=== PATIENT | female | born 1980 | race Caucasian/White ===

== ENCOUNTER 2016-09-23 12:05 | Outpatient (CLI) ==
[2016-07-09 21:14] VITALS: BMI 37.2
--- NOTE | 2016-09-23 13:09 | US ---
EXAM: Transvaginal pelvic ultrasound HISTORY: Irregular menses COMPARISON: CT abdomen pelvis 06/30/2015 TECHNIQUE: Transvaginal pelvic ultrasound was performed to better evaluate the structures. Limited Doppler was provided. FINDINGS: The uterus measures 10.2 x 4.6 x 4.8 cm. The endometrium measures 1.1 cm in thickness. C ervix is normal in appearance. There is a anechoic Nabothian cyst measuring 0.5 x 0.7 cm. The right ovary measures 2.5 x 1.7 x 1.8 cm. There is normal color Doppler flow. Multiple anechoic follicles are identified. The left ovary is not visualized due to bowel gas. IMPRESSION: 1. Endometrial thickening as measured above. Please correlate with menstrual status. 2. Left ovary is not visualized due to bowel gas with Nabothian cyst identified.
== END 2016-09-23 12:06 | disposition home or self-care (01) ==
LOC: RAD 12:05
PROVIDERS: ATTEND Nurse Practitioner Family
DX: N92.6 Irregular menstruation, unspecified (principal)

== ENCOUNTER 2016-11-04 09:15 | Outpatient (CLI) ==
[2016-07-09 21:14] VITALS: BMI 37.2
[2016-11-04 09:49] LABS: BILIRUBIN,URINE Negative (NEGATIVE); KETONES,URINE Trace (NEGATIVE); LEUKOCYTE ESTERASE ,URINE Negative (NEGATIVE); NITRITE,URINE Negative (NEGATIVE); PH,URINE 6.5 (5-9); PROTEIN,URINE Trace (NEGATIVE); URINE, BLOOD Negative (NEGATIVE)
[2016-11-04 09:53] LABS: BASOPHILS % (AUTO) 0.3 % (0.0-3.0); EOSINOPHILS # (AUTO) 0.1 K/ul (0.0-0.7); EOSINOPHILS % (AUTO) 2.2 % (0.0-7.0); HEMATOCRIT 39.5 % (37.0-47.0); HEMOGLOBIN 12.8 g/dl (12.0-16.0); IMMATURE GRANULOCYTE % (AUTO) 0.3 % (0.0-5.0); LYMPHOCYTES # (AUTO) 1.6 K/uL (0.60-3.4); LYMPHOCYTES % (AUTO) 26.5 (10.0-50.0); MEAN CORPUSCULAR HEMOGLOBIN 26.9 pg (27.0-31.0); MEAN CORPUSCULAR HGB CONC 32.4 (31.8-35.4); MEAN CORPUSCULAR VOLUME 83.2 fl (81.0-99.0); MONOCYTES # (AUTO) 0.4 K/uL (0.4-2.0); NEUTROPHILS # (AUTO) 3.8 K/ul (2.0-6.9); NEUTROPHILS % (AUTO) 64.7; PLATELET COUNT 291 10^3/uL (140-440); RED BLOOD COUNT 4.75 10^6/ul (4.20-5.40); WHITE BLOOD COUNT 5.85 K/ul (4.6-10.2)
[2016-11-04 09:54] LABS: ADD URINE MICROSCOPIC YES
[2016-11-04 10:21] LABS: ALBUMIN 3.6 g/dL (3.4-5.0); ALBUMIN/GLOBULIN RATIO 0.95; ANION GAP 14.6; BILIRUBIN,TOTAL 0.21 mg/dL (0.00-1.20); BUN/CREATININE RATIO 17.28; CALCIUM 9.2 mg/dL (8.2-10.2); CREATININE 0.81 mg/dL (0.60-1.30); POTASSIUM 4.6 mmol/L (3.5-5.10); TOTAL PROTEIN 7.4 g/dL (6.4-8.2)
== END 2016-11-04 09:16 | disposition home or self-care (01) ==
LOC: LAB 09:15
PROVIDERS: ATTEND Nurse Practitioner Family
DX: F32.9 Major depressive disorder, single episode, unspecified (principal); E66.9 Obesity, unspecified
CPT/HCPCS: 36415; 80053; 81001; 84439; 84443; 85025; 93005; 93010

== ENCOUNTER 2016-11-12 09:02 | Emergency (ER) ==
[2016-11-12 09:14] VITALS: BP 158/77; TEMP 98.5; BMI 46.0
[2016-11-12] MEDS ORDERED: DUONEB NEB STA (09:27)
[2016-11-12] MEDS ORDERED: PREDNISONE PO STA (09:28)
[2016-11-12 09:42] LABS: BASOPHILS % (AUTO) 0.3 % (0.0-3.0); EOSINOPHILS # (AUTO) 0.2 K/ul (0.0-0.7); EOSINOPHILS % (AUTO) 2.6 % (0.0-7.0); HEMATOCRIT 40.7 % (37.0-47.0); HEMOGLOBIN 13.4 g/dl (12.0-16.0); IMMATURE GRANULOCYTE % (AUTO) 0.3 % (0.0-5.0); LYMPHOCYTES # (AUTO) 2.3 K/uL (0.60-3.4); LYMPHOCYTES % (AUTO) 25.4 (10.0-50.0); MEAN CORPUSCULAR HEMOGLOBIN 26.8 pg (27.0-31.0); MEAN CORPUSCULAR HGB CONC 32.9 (31.8-35.4); MEAN CORPUSCULAR VOLUME 81.4 fl (81.0-99.0); MONOCYTES # (AUTO) 0.4 K/uL (0.4-2.0); MONOCYTES % (AUTO) 3.9 (0-10); NEUTROPHILS # (AUTO) 6.1 K/ul (2.0-6.9); NEUTROPHILS % (AUTO) 67.5; PLATELET COUNT 327 10^3/uL (140-440); WHITE BLOOD COUNT 8.99 K/ul (4.6-10.2)
[2016-11-12 09:51] LABS: ABG BASE EXCESS -5 (-2.0-2.0); ABG HCO3 19.6 (22.0-26.0); ABG PCO2 29.1 mmHg (35-45); ABG PH 7.436 (7.35-7.45); ABG TCO2 20 (22.0-28.0)
[2016-11-12 10:02] LABS: FLU INTERNAL QC INTERNAL QC VALID; RAPID FLU A NEGATIVE (NEGATIVE); RAPID FLU B NEGATIVE (NEGATIVE)
[2016-11-12 10:04] LABS: ALBUMIN 3.9 g/dL (3.4-5.0); ALBUMIN/GLOBULIN RATIO 0.98; ANION GAP 15.1; BILIRUBIN,TOTAL 0.47 mg/dL (0.00-1.20); BUN/CREATININE RATIO 19.75; CALCIUM 9.5 mg/dL (8.2-10.2); CREATININE 0.81 mg/dL (0.60-1.30); POTASSIUM 4.1 mmol/L (3.5-5.10); TOTAL PROTEIN 7.9 g/dL (6.4-8.2)
[2016-11-12 10:05] LABS: SERUM PREGNANCY INTERNAL QC INTERNAL QC VALID
--- NOTE | 2016-11-12 10:28 | DI ---
EXAM: PA and lateral views of the chest HISTORY: Cough. COMPARISON: None FINDINGS: The cardiomediastinal silhouette is normal. There is no pneumothorax or pleural effusion . There is no consolidation, nodule or mass. The osseous structures are unremarkable. IMPRESSION: No acute cardiopulmonary process
--- NOTE | 2016-11-12 11:28 | ED.PDOC ---
General ED Provider: Dr. KANA BUSBY Chief Complaint: Respiratory Complaint Stated Complaint: cough, short of air flu like symptoms Time Seen by Physician: 09:00 (started a new BCP MEDS ) Mode of Arrival: Walk-In Information Source: Patient Exam Limitations: No limitations Primary Care Provider: [facility] Nursing and Triage Documentation Reviewed and Agree: Yes Respiratory Complaint Exam - Respiratory Complaint/Exam Symptoms Are: Still present Timing: Constant Initial Severity: Moderate Current Severity: Moderate Location: Throat Character: Reports: Non-productive cough Aggravating: Reports: None Alleviating: Reports: None Associated Signs and Symptoms: Reports: Dyspnea, Nasal congestion Related History: Reports: Similar episode History of Healthcare-Acquired Pneumonia: No Related Surgical History: Reports: None Pulmonary Embolism Risk Factors: None Cardiac Risk Factors: Reports: None Pseudomonas Risk Factors: Reports: None Tuberculosis Risk Factors: Reports: None Status Asthmaticus Risk Factors: Reports: None Home Oxygen Use: No Recent Stress Test: No Recent Echo/LV Function: No Current Antibiotic Use: No Current Asthma Medication Use: No Inadequate Respiratory Effort: No Dysphagia Present: No Stridor Present: No JVD Present: No Accessory Muscle Use: No Retractions: Not Present Diminished Breath Sounds: No Sinus Tenderness: None Grunting Respirations: No Kussmaul Respirations: No Differential Diagnoses: Pneumonia, Bronchitis Review of Systems - Review Of Systems Constitutional: Reports: Malaise Eyes: Reports: No symptoms Ears, Nose, Mouth, Throat: Reports: No symptoms Respiratory: Reports: Cough Cardiac: Reports: No symptoms GI: Reports: No symptoms : Reports: No symptoms Musculoskeletal: Reports: No symptoms Skin: Reports: No symptoms Neurological: Reports: No symptoms Endocrine: Reports: No symptoms Hematologic/Lymphatic: Reports: No symptoms All Other Systems: Reviewed and Negative Past Medical History - Past Medical History Previously Healthy: Yes Endocrine: Reports: None Cardiovascular: Reports: None Respiratory: Reports: None Hematological: Reports: None Gastrointestinal: Reports: None Genitourinary: Reports: None Neuro/Psych: Reports: None Musculoskeletal: Reports: None Cancer: Reports: None Last Menstrual Period: 2 days - Surgical History General Surgical History: Reports: Unknown - Family History Family History: Reports: Unknown - Social History Smoking Status: Former smoker Hx Substance Use: No Alcohol Screening: Occasionally Physical Exam - Physical Exam Appearance: Well-appearing Ill-appearing: Mild Pain Distress: Mild Eyes: TERESA, EOMI, Conjunctiva clear ENT: Ears normal, Nose normal, Oropharynx normal Respiratory: Breath sounds diminished, Respirations nonlabored, Rhonchi Cardiovascular: RRR, Pulses normal, No rub, No murmur GI/: Soft, Nontender, No masses, Bowel sounds normal, No Organomegaly Musculoskeletal: Normal strength, ROM intact, No edema, No calf tenderness Skin: Warm, Dry, Normal color Neurological: Sensation intact, Motor intact, Reflexes intact, Cranial nerves intact, Alert, Oriented Psychiatric: Affect appropriate, Mood appropriate Critical Care Note - Critical Care Note Total Time (mins): 0 Course - Course Hematology/Chemistry: 11/12/16 09:35 11/12/16 09:35 Orders, Labs, Meds: Lab Review 11/12/16 11/12/16 09:35 09:45 WBC 8.99 RBC 5.00 Hgb 13.4 Hct 40.7 MCV 81.4 MCH 26.8 L MCHC 32.9 RDW Coeff of [place] 14.1 Plt Count 327 Immature Gran % (Auto) 0.3 Neut % (Auto) 67.5 Lymph % (Auto) 25.4 [place] % (Auto) 3.9 Eos % (Auto) 2.6 Baso % (Auto) 0.3 Immature Gran # (Auto) 0.0 Neut # 6.1 Lymph # 2.3 [place] # 0.4 Eos # 0.2 Baso # 0.0 D-Dimer 6.32 H Puncture Site R rad O2 Saturation 96.0 ABG pH 7.436 ABG pCO2 29.1 L ABG pO2 78.0 L ABG HCO3 19.6 L ABG Total CO2 20 L ABG Base Excess -5 L Vinod Test + FiO2 % 21.0 Sodium 139 Potassium 4.1 Chloride 105 Carbon Dioxide 23 Anion Gap 15.1 BUN 16 Creatinine 0.81 Estimated GFR (MDRD) 81.00 BUN/Creatinine Ratio 19.75 Glucose 98 Calcium 9.5 Total Bilirubin 0.47 AST 13 L ALT 19 Alkaline Phosphatase 62 Total Protein 7.9 Albumin 3.9 Globulin 4.0 Albumin/Globulin Ratio 0.98 Serum , Qual Negative Influenza A (Rapid) Negative Influenza B (Rapid) Negative Orders Category Date Time Status ABG DRAW REQUEST Stat CARDIO 11/12/16 09:27 Completed EKG-(ED ONLY) Stat CARDIO 11/12/16 09:27 Completed NEBULIZER TREATMENT Stat CARDIO 11/12/16 09:28 Completed NPO REMINDER: IMAGING ONCE CARE 11/12/16 10:44 Ordered ED IV/MEDIPORT/POWERPORT .ONCE EMERGENCY 11/12/16 10:44 Ordered ABG Stat LAB 11/12/16 09:45 Completed CBC W/ AUTO DIFF Stat LAB 11/12/16 09:35 Completed COMPREHENSIVE METABOLIC PANEL Stat LAB 11/12/16 09:35 Completed D-DIMER Stat LAB 11/12/16 09:35 Completed RAPID FLU A/B Stat LAB 11/12/16 09:35 Completed SERUM Stat LAB 11/12/16 09:35 Completed 0.9 % Sodium Chloride [Saline Flush] MEDS 11/12/16 10:44 Ordered 1 syr IVF PRN PRN Ipratropium/Albuterol Neb [Duoneb] MEDS 11/12/16 09:27 Discontinued 1 vial NEB ONCE STA Prednisone MEDS 11/12/16 09:28 Discontinued 40 mg PO ONCE STA CHEST, 2 VIEWS PA & LAT Stat RADS 11/12/16 09:[address] CHEST PE PROTOCOL Stat RADS 11/12/16 10:43 Ordered Medications Generic Name Dose Route Start Last Admin Trade Name Freq PRN Reason Stop Dose Admin Sodium Chloride 1 syr 11/12/16 10:44 Saline Flush IVF PRN PRN To flush IV Discontinued Medications Generic Name Dose Route Start Last Admin Trade Name Freq PRN Reason Stop Dose Admin Albuterol/Ipratropium 1 vial 11/12/16 09:27 11/12/16 09:49 Duoneb NEB 11/12/16 09:28 1 vial ONCE STA Administration Prednisone 40 mg 11/12/16 09:28 11/12/16 10:26 Prednisone PO 11/12/16 09:29 40 mg ONCE STA Administration Vital Signs: Temp Pulse Resp BP Pulse Ox 11/12/16 09:03 98.5 F 82 20 158/77 H 96 Departure - Departure Time of Disposition: 12:00 Disposition: TSF SHORT-TRM HOSP Discharge Problem: Shortness of breath, Pulmonary embolism Instructions: Dyspnea (ED) Condition: Good Pt referred to PMD for follow-up: No Additional Instructions: Please call your Family Physician as soon as possible to schedule a follow-up appointment. Allergies/Adverse Reactions: Allergies No Known Allergies Allergy (Unverified 06/30/15 18:22) Home Medications: Ambulatory Orders Ibuprofen 800 mg PO PRN PRN 11/03/16 Valacyclovir HCl [Valtrex] 500 mg PO d 11/03/16 Disposition Discussed With: Patient
--- NOTE | 2016-11-12 11:38 | CT ---
EXAM: CT Angiogram Chest. HISTORY: Shortness of breath. COMPARISON: Radiograph earlier the same day. TECHNIQUE: Multiple axial images of the chest were obtained following intravenous administration of 125 mL of Omnipaque 350, low osmolar. Images were reformatted in the sagittal and coronal plane. 3-D and maximum intensity projection reformatted images were created on an independent workstation. FINDINGS: Evaluation for lymphadenopathy is somewhat limited due to timing of the scan and respirat ory motion. Heart size is mildly enlarged. Main pulmonary artery is not overtly enlarged. No sign ificant right heart strain identified. There is no pericardial effusion. There are central intraluminal defects within the right upper, lower and middle lobar pulmonary cheikh ry branches extending into segmental and subsegmental branches. There are filling defects within th e left upper and lower lobe segmental and subsegmental branches. Contrast does pass distal to many of these filling defects. Lungs are grossly clear save for areas of ground-glass opacities likely r epresenting atelectasis. No pleural effusion or pneumothorax identified. No acute abnormality identified in the upper abdomen. 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 IMPRESSION: Critical result: Extensive bilateral pulmonary embolus. Comment: Findings were discussed with Dr. Cramer at 11:34 a.m. on 11/12/2016.
[2016-11-12] MEDS ORDERED: LOVENOX SUBCUT STA (11:41)
== END 2016-11-12 12:40 | disposition short-term general hospital (02) ==
LOC: ED 09:02
DX: I26.99 Other pulmonary embolism without acute cor pulmonale (principal)
CPT/HCPCS: 36415; 80053; 82803; 84703; 85025; 85379; 87804; 93005; 93010; 94640; 96372; 99285

== ENCOUNTER 2016-11-12 12:44 | Outpatient (CLI) ==
[2016-11-12 09:14] VITALS: BMI 46.0
== END 2016-11-12 12:45 ==
LOC: AMBL 12:44
PROVIDERS: ATTEND Internal Medicine
DX: R06.02 Shortness of breath (principal); I26.99 Other pulmonary embolism without acute cor pulmonale

== ENCOUNTER 2016-11-16 15:58 | Emergency (ER) ==
[2016-11-16 16:05] VITALS: BP 140/93; TEMP 100; BMI 46.7
[2016-11-16 16:24] LABS: BASOPHILS % (AUTO) 0.3 % (0.0-3.0); EOSINOPHILS # (AUTO) 0.2 K/ul (0.0-0.7); EOSINOPHILS % (AUTO) 2.6 % (0.0-7.0); HEMATOCRIT 39.1 % (37.0-47.0); HEMOGLOBIN 12.9 g/dl (12.0-16.0); IMMATURE GRANULOCYTE % (AUTO) 0.4 % (0.0-5.0); LYMPHOCYTES # (AUTO) 2.2 K/uL (0.60-3.4); LYMPHOCYTES % (AUTO) 29.1 (10.0-50.0); MEAN CORPUSCULAR HEMOGLOBIN 27.2 pg (27.0-31.0); MEAN CORPUSCULAR VOLUME 82.3 fl (81.0-99.0); MONOCYTES # (AUTO) 0.3 K/uL (0.4-2.0); MONOCYTES % (AUTO) 4.1 (0-10); NEUTROPHILS # (AUTO) 4.9 K/ul (2.0-6.9); NEUTROPHILS % (AUTO) 63.5; PLATELET COUNT 331 10^3/uL (140-440); RED BLOOD COUNT 4.75 10^6/ul (4.20-5.40); WHITE BLOOD COUNT 7.64 K/ul (4.6-10.2)
[2016-11-16 16:41] LABS: FLU INTERNAL QC INTERNAL QC VALID; RAPID FLU A NEGATIVE (NEGATIVE); RAPID FLU B NEGATIVE (NEGATIVE)
[2016-11-16 16:42] LABS: ALBUMIN 3.7 g/dL (3.4-5.0); ALBUMIN/GLOBULIN RATIO 0.95; ANION GAP 12.2; BILIRUBIN,TOTAL 0.23 mg/dL (0.00-1.20); BUN/CREATININE RATIO 21.05; CALCIUM 9.4 mg/dL (8.2-10.2); CREATININE 0.76 mg/dL (0.60-1.30); POTASSIUM 4.2 mmol/L (3.5-5.10); TOTAL PROTEIN 7.6 g/dL (6.4-8.2)
--- NOTE | 2016-11-16 16:52 | ED.PDOC ---
General ED Provider: Dr. KANA BUSBY Chief Complaint: Headache Stated Complaint: HEADACHE Time Seen by Physician: 16:00 Mode of Arrival: Walk-In Information Source: Patient Exam Limitations: No limitations [facility] and Triage Documentation Reviewed and Agree: Yes Neurological Complaint Exam - Headache Complaint/Exam Onset: Gradual Duration: 1 DAY Symptoms Are: Resolved Timing: Intermittent Worst Headache Ever: No Initial Severity: Mild Current Severity: Mild Location: Diffuse Aggravating: Reports: None Alleviating: Reports: None Associated Signs and Symptoms: Denies: Dizziness, Seizure, Nausea, Vomiting, Sinus pressure, Fever, Neck pain, Neck stiffness, Decreased LOC, Visual changes Related History: Reports: Similar episode Related Surgical History: Reports: None SAH Risk Factors: Reports: None Meningitis Risk Factors: Reports: None SDH Risk Factors: Reports: None Fundoscopic Exam: Present: Normal Findings Papilledema Present: No Temporal Artery Tenderness: Present: None Sinus Tenderness: Present: None TMJ Tenderness: Present: None Meningeal Signs Positive: No Pain on Passive Flexion-Positive Kernig's: No ROM Limited In: No Limitiations Focal Weakness: Present: None Focal Sensory Loss: Present: None Gait: Normal Nystagmus Present: No Gag Reflex Present: Yes Babinski Sign: Negative Right, Negative Left Review of Systems - Review Of Systems Constitutional: Reports: No symptoms Eyes: Reports: No symptoms Ears, Nose, Mouth, Throat: Reports: No symptoms Respiratory: Reports: No symptoms Cardiac: Reports: No symptoms GI: Reports: No symptoms : Reports: No symptoms Musculoskeletal: Reports: No symptoms Skin: Reports: No symptoms Neurological: Reports: Headache Endocrine: Reports: No symptoms Hematologic/Lymphatic: Reports: No symptoms All Other Systems: Reviewed and Negative Past Medical History - Past Medical History Previously Healthy: Yes Endocrine: Reports: None Cardiovascular: Reports: None Respiratory: Reports: None, Other (P.E.) Hematological: Reports: None Gastrointestinal: Reports: None Genitourinary: Reports: None Neuro/Psych: Reports: None Musculoskeletal: Reports: None Cancer: Reports: None Last Menstrual Period: now - Surgical History General Surgical History: Reports: Unknown - Family History Family History: Reports: Unknown - Social History Smoking Status: Former smoker Hx Substance Use: No Alcohol Screening: Occasionally Physical Exam - Physical Exam Appearance: Well-appearing, No pain distress, Well-nourished Eyes: TERESA, EOMI, Conjunctiva clear ENT: Ears normal, Nose normal, Oropharynx normal Respiratory: Airway patent, Breath sounds clear, Breath sounds equal, Respirations nonlabored Cardiovascular: RRR, Pulses normal, No rub, No murmur GI/: Soft, Nontender, No masses, Bowel sounds normal, No Organomegaly Musculoskeletal: Normal strength, ROM intact, No edema, No calf tenderness Skin: Warm, Dry, Normal color Neurological: Sensation intact, Motor intact, Reflexes intact, Cranial nerves intact, Alert, Oriented Psychiatric: Affect appropriate, Mood appropriate Critical Care Note - Critical Care Note Total Time (mins): 0 Course - Course Hematology/Chemistry: 11/16/16 16:20 11/16/16 16:20 Orders, Labs, Meds: Lab Review 11/16/16 11/16/16 16:15 16:20 WBC 7.64 RBC 4.75 Hgb 12.9 Hct 39.1 MCV 82.3 MCH 27.2 MCHC 33.0 RDW Coeff of [place] 13.7 Plt Count 331 Immature Gran % (Auto) 0.4 Neut % (Auto) 63.5 Lymph % (Auto) 29.1 [place] % (Auto) 4.1 Eos % (Auto) 2.6 Baso % (Auto) 0.3 Immature Gran # (Auto) 0.0 Neut # 4.9 Lymph # 2.2 [place] # 0.3 L Eos # 0.2 Baso # 0.0 Sodium 140 Potassium 4.2 Chloride 104 Carbon Dioxide 28 Anion Gap 12.2 BUN 16 Creatinine 0.76 Estimated GFR (MDRD) 87.00 BUN/Creatinine Ratio 21.05 Glucose 109 Calcium 9.4 Total Bilirubin 0.23 AST 13 L ALT 19 Alkaline Phosphatase 58 Total Protein 7.6 Albumin 3.7 Globulin 3.9 Albumin/Globulin Ratio 0.95 Influenza A (Rapid) Negative Influenza B (Rapid) Negative Orders Category Date Time Status BLOOD CULTURE Stat LAB 11/16/16 16:20 Received CBC W/ AUTO DIFF Stat LAB 11/16/16 16:20 Completed COMPREHENSIVE METABOLIC PANEL Stat LAB 11/16/16 16:20 Completed MOLECULAR GROUP A STREP Stat LAB 11/16/16 16:15 Results RAPID FLU A/B Stat LAB 11/16/16 16:15 Completed STREP SCREEN Stat LAB 11/16/16 16:15 Results Vital Signs: Temp Pulse Resp BP Pulse Ox 11/16/16 15:59 100 F H 64 20 140/93 H 98 Departure - Departure Time of Disposition: 16:51 (VISION IS 20/25 RIGHT EYE) Disposition: HOME SELF-CARE Discharge Problem: Headache Instructions: Acute Headache (ED) Condition: Good Pt referred to PMD for follow-up: No Additional Instructions: Please call your Family Physician as soon as possible to schedule a follow-up appointment. Prescriptions: Hydrocodone/Acetaminophen [[place] 5-325 Tablet] 1 each PO Q6HR PRN #7 tablet PRN Reason: PAIN Allergies/Adverse Reactions: Allergies bitbirth control pills Allergy (Severe, Uncoded 11/16/16 16:08) blood clots Home Medications: Ambulatory Orders Valacyclovir HCl [Valtrex] 500 mg PO d 11/03/16 Apixaban [Eliquis] 5 mg PO 2 tabs BID 11/16/16 Hydrocodone/Acetaminophen [[place] 5-325 Tablet] 1 each PO Q6HR PRN #7 tablet 03/28
== END 2016-11-16 16:58 | disposition home or self-care (01) ==
LOC: ED 15:58
DX: R51 Headache (principal)
CPT/HCPCS: 36415; 80053; 85025; 87040; 87651; 87804; 87880; 99283

== ENCOUNTER 2016-11-17 15:53 | Outpatient (CLI) ==
[2016-11-16 16:05] VITALS: BMI 46.7
--- NOTE | 2016-11-17 16:47 | CT ---
EXAM: CTA CHEST (PE PROTOCOL) HISTORY: Pulmonary embolism follow-up on anticoagulation TECHNIQUE: CTA with intravenous contrast. 3-mm axial sections. Coronal and sagittal reformations. 3-D reconstructions. 125 mL Omnipaque. COMPARISON: 11/12/2016 FINDINGS: There remains small bilateral pulmonary arterial filling defects although to a much lesser degree th an previously seen. Heart size and thoracic aorta remain within normal limits. Lung evaluation is limited by respiratory motion although there is no convincing evidence of pulmona ry infarction or consolidated pneumonia. No visible pleural fluid or pneumothorax. There is no not able right heart strain. Peripheral soft tissues within normal limits IMPRESSION: Improving bilateral pulmonary emboli.
== END 2016-11-17 15:54 | disposition home or self-care (01) ==
LOC: RAD 15:53
PROVIDERS: ATTEND Nurse Practitioner Family
DX: I26.99 Other pulmonary embolism without acute cor pulmonale (principal)

== ENCOUNTER 2016-11-18 12:10 | Outpatient (CLI) ==
[2016-11-18 13:05] LABS: CHOL/HDL RATIO 3.9 (4.5-5.5)
== END 2016-11-18 12:11 | disposition home or self-care (01) ==
LOC: LAB 12:10
PROVIDERS: ATTEND Emergency Medicine
DX: E78.5 Hyperlipidemia, unspecified (principal)
CPT/HCPCS: 36415; 80061

== ENCOUNTER 2017-03-02 15:22 | Outpatient (CLI) ==
[2017-03-02 16:39] LABS: BASOPHILS % (AUTO) 0.4 % (0.0-3.0); EOSINOPHILS # (AUTO) 0.2 K/ul (0.0-0.7); EOSINOPHILS % (AUTO) 2.7 % (0.0-7.0); HEMATOCRIT 40.7 % (37.0-47.0); HEMOGLOBIN 13.2 g/dl (12.0-16.0); IMMATURE GRANULOCYTE % (AUTO) 0.4 % (0.0-5.0); LYMPHOCYTES # (AUTO) 2.1 K/uL (0.60-3.4); LYMPHOCYTES % (AUTO) 29.4 (10.0-50.0); MEAN CORPUSCULAR HEMOGLOBIN 26.8 pg (27.0-31.0); MEAN CORPUSCULAR HGB CONC 32.4 (31.8-35.4); MEAN CORPUSCULAR VOLUME 82.6 fl (81.0-99.0); MONOCYTES # (AUTO) 0.3 K/uL (0.4-2.0); MONOCYTES % (AUTO) 4.9 (0-10); NEUTROPHILS # (AUTO) 4.4 K/ul (2.0-6.9); NEUTROPHILS % (AUTO) 62.2; PLATELET COUNT 374 10^3/uL (140-440); RED BLOOD COUNT 4.93 10^6/ul (4.20-5.40)
[2017-03-02 16:46] LABS: ALBUMIN 4.1 g/dL (3.4-5.0); ALBUMIN/GLOBULIN RATIO 1.08; ANION GAP 12.9; BILIRUBIN,TOTAL 0.39 mg/dL (0.00-1.20); BUN/CREATININE RATIO 22.07; CALCIUM 9.7 mg/dL (8.2-10.2); CREATININE 0.77 mg/dL (0.60-1.30); POTASSIUM 3.9 mmol/L (3.5-5.10); TOTAL PROTEIN 7.9 g/dL (6.4-8.2)
== END 2017-03-02 15:23 | disposition home or self-care (01) ==
LOC: LAB 15:22
PROVIDERS: ATTEND Nurse Practitioner Family
DX: I26.99 Other pulmonary embolism without acute cor pulmonale (principal); G44.89 Other headache syndrome
CPT/HCPCS: 36415; 80053; 85025

== ENCOUNTER 2017-03-03 08:00 | Outpatient (CLI) ==
--- NOTE | 2017-03-03 12:36 | CT ---
EXAM: CTA chest for PE HISTORY: Core pulmonale COMPARISON: CT PE 11/17/2016 and 11/12/2016 TECHNIQUE: CTA of the chest was performed from the lung apices to the upper abdomen after 125 ml of Omnipaque IV contrast was administered using PE protocol. 3-D imaging was also provided. FINDINGS: There is no filling defect in the pulmonary arteries to the level of the subsegmental pul monary arteries. No residual thrombus is identified. The heart is normal without signs of ventricul ar strain. The aorta is unremarkable. The thyroid is unremarkable. The heart is normal in size without perica rdial effusion. There is no lymphadenopathy. There is no pneumothorax or pleural effusion. There is no consolidation, nodule or mass. The airways are patent. The osseous structures are stable. Small bowel in the upper abdomen demonstrates a small hiatal her onel and incompletely evaluated gallstones IMPRESSION: 1. No residual pulmonary embolism is identified. 2. No acute cardiopulmonary process. 3. Incompletely evaluated gallstones in the gallbladder and small hiatal hernia.
== END 2017-03-03 08:01 | disposition home or self-care (01) ==
LOC: RAD 08:00
PROVIDERS: ATTEND Nurse Practitioner Family
DX: I26.99 Other pulmonary embolism without acute cor pulmonale (principal); G44.89 Other headache syndrome

== ENCOUNTER 2017-03-04 08:03 | Outpatient (CLI) ==
--- NOTE | 2017-03-04 08:41 | CT ---
Exam: CT of the brain without intravenous contrast. Comparison: MRI performed 06/04/2014. Reason for exam: Pulmonary embolus without acute cor pulmonale. FINDINGS: No acute intracranial hemorrhage, mass effect, ventricular dilatation, or territorial infarction. T he quadrigeminal and ambient cisterns are patent. There is no extraaxial fluid collection. The iris varium is intact. The paranasal sinuses and mastoid air cells are unopacified. Impression: No acute cardiopulmonary process.
== END 2017-03-04 08:04 | disposition home or self-care (01) ==
LOC: RAD 08:03
PROVIDERS: ATTEND Nurse Practitioner Family
DX: G44.89 Other headache syndrome (principal); I26.99 Other pulmonary embolism without acute cor pulmonale

== ENCOUNTER 2017-05-12 16:08 | Outpatient (CLI) ==
[2017-05-12 16:23] LABS: BASOPHILS % (AUTO) 0.4 % (0.0-3.0); EOSINOPHILS # (AUTO) 0.2 K/ul (0.0-0.7); EOSINOPHILS % (AUTO) 2.3 % (0.0-7.0); HEMATOCRIT 37.4 % (37.0-47.0); HEMOGLOBIN 12.6 g/dl (12.0-16.0); IMMATURE GRANULOCYTE % (AUTO) 0.4 % (0.0-5.0); LYMPHOCYTES # (AUTO) 2.5 K/uL (0.60-3.4); LYMPHOCYTES % (AUTO) 33.3 (10.0-50.0); MEAN CORPUSCULAR HEMOGLOBIN 27.7 pg (27.0-31.0); MEAN CORPUSCULAR HGB CONC 33.7 (31.8-35.4); MEAN CORPUSCULAR VOLUME 82.2 fl (81.0-99.0); MONOCYTES # (AUTO) 0.3 K/uL (0.4-2.0); MONOCYTES % (AUTO) 3.4 (0-10); NEUTROPHILS # (AUTO) 4.5 K/ul (2.0-6.9); NEUTROPHILS % (AUTO) 60.2; PLATELET COUNT 389 10^3/uL (140-440); RED BLOOD COUNT 4.55 10^6/ul (4.20-5.40); WHITE BLOOD COUNT 7.54 K/ul (4.6-10.2)
[2017-05-12 16:59] LABS: ERYTHROCYTE SEDIMENTATION RATE 10 mm/hr (0-20); ESR INTERNAL QC INTERNAL QC VALID
[2017-05-13 07:20] LABS: C-REACTIVE PROTEIN 6.2 mg/L (0.0-4.9); RHEUMATOID ARTHRITIS FACTOR < 10.0 IU/mL (0.0-13.9)
[2017-05-13 10:36] LABS: ANTI-NUCLEAR ANTIBODY SCREEN Negative (Negative)
== END 2017-05-12 16:09 | disposition home or self-care (01) ==
LOC: LAB 16:08
PROVIDERS: ATTEND Nurse Practitioner Family
DX: M25.50 Pain in unspecified joint (principal)
CPT/HCPCS: 36415; 82607; 84132; 85025; 85651; 86038; 86140; 86430; 86617; 86757; 87798

== ENCOUNTER 2017-05-19 16:06 | Outpatient (CLI) | END 2017-05-19 16:07 | disposition home or self-care (01) | LOC: LAB 16:06 | PROVIDERS: ATTEND Nurse Practitioner Family | DX: E55.9 Vitamin D deficiency, unspecified (principal) | CPT/HCPCS: 36415; 82306 ==

== ENCOUNTER 2017-06-04 13:01 | Emergency (ER) ==
[2017-06-04 13:09] VITALS: BP 132/88; TEMP 97.9
[2017-06-04] MEDS ORDERED: ZOFRAN 4 MG/2 ML IM STA (13:23)
--- NOTE | 2017-06-04 13:25 | ED.PDOC ---
General ED Provider: Dr. JULIO CASEY Chief Complaint: Nausea/Vomiting Stated Complaint: been vomiting today, having nausea all day. Time Seen by Physician: 13:24 Information Source: Patient Primary Care Provider: JULIO [facility] Nursing and Triage Documentation Reviewed and Agree: Yes GI Complaint Exam - Vomiting/Diarrhea Complaint/Exam Symptoms Are: Resolved Episodes of Vomiting over last 24 Hours: 4 Episodes of Diarrhea Over Last 24 Hours: 0 Initial Severity: Mild Current Severity: Mild Character of Vomiting: Reports: Non-bilious Aggravating: Reports: Food, Liquids Alleviating: Reports: None Associated Signs and Symptoms: Reports: Light-headedness. Denies: Dizziness, Melena, Hematemesis, Fever, Abdominal pain, Cramping Menses: Regular Recent Positive Test: No Use of Oral Contraceptives: No Use of Depoprovera: No Compliant With Contraceptive Use: No Non-GI Risk Factors: Reports: None Surgical Obstruction Risk Factors: Reports: None Related Surgical History: Reports: None Abdominal Findings: Present: None Differential Diagnoses: Viral Gastroenteritis Review of Systems - Review Of Systems Constitutional: Reports: No symptoms Eyes: Reports: No symptoms Ears, Nose, Mouth, Throat: Reports: No symptoms Respiratory: Reports: No symptoms Cardiac: Reports: No symptoms GI: Reports: Nausea, Vomiting : Reports: No symptoms Musculoskeletal: Reports: No symptoms Skin: Reports: No symptoms Neurological: Reports: No symptoms Endocrine: Reports: No symptoms Hematologic/Lymphatic: Reports: No symptoms All Other Systems: Reviewed and Negative Past Medical History - Past Medical History Previously Healthy: Yes Endocrine: Reports: None Cardiovascular: Reports: None Respiratory: Reports: None, Other (P.E.) Hematological: Reports: None Gastrointestinal: Reports: None Genitourinary: Reports: None Neuro/Psych: Reports: None Musculoskeletal: Reports: None Cancer: Reports: None Last Menstrual Period: 05/01/17 - Surgical History General Surgical History: Reports: Unknown - Family History Family History: Reports: Unknown - Social History Smoking Status: Former smoker Hx Substance Use: No (Tried marijuana last week) Alcohol Screening: None Physical Exam - Physical Exam Appearance: Well-appearing, No pain distress, Well-nourished Eyes: TERESA, EOMI, Conjunctiva clear ENT: Ears normal, Nose normal, Oropharynx normal Respiratory: Airway patent, Breath sounds clear, Breath sounds equal, Respirations nonlabored Cardiovascular: RRR, Pulses normal, No rub, No murmur GI/: Soft, Nontender, No masses, Bowel sounds normal, No Organomegaly Musculoskeletal: Normal strength, ROM intact, No edema, No calf tenderness Skin: Warm, Dry, Normal color Neurological: Sensation intact, Motor intact, Reflexes intact, Cranial nerves intact, Alert, Oriented Psychiatric: Affect appropriate, Mood appropriate Critical Care Note - Critical Care Note Total Time (mins): 0 Course - Course Vital Signs: Temp Pulse Resp BP Pulse Ox 06/04/17 13:02 97.9 F 66 20 132/88 98 Departure - Departure Time of Disposition: 13:27 Disposition: HOME SELF-CARE Discharge Problem: Gastroenteritis Instructions: Gastroenteritis (ED) Condition: Good Pt referred to PMD for follow-up: Yes Additional Instructions: soft diet 2- 3days Drink gatorade or plenty of fluids. Prescriptions: Ondansetron [Zofran Odt] 4 mg PO Q8H #20 tab.rapdis Allergies/Adverse Reactions: Allergies bitbirth control pills Allergy (Severe, Uncoded 11/16/16 16:08) blood clots Home Medications: Ambulatory Orders Valacyclovir HCl [Valtrex] 500 mg PO d 11/03/16 Topiramate [Topamax] 75 mg PO BID 05/12/17 Ondansetron [Zofran Odt] 4 mg PO Q8H #20 tab.rapdis 06/04/17 Disposition Discussed With: Patient
== END 2017-06-04 14:05 | disposition home or self-care (01) ==
LOC: ED 13:01
DX: K52.9 Noninfective gastroenteritis and colitis, unspecified (principal)
CPT/HCPCS: 96372; 99282

== ENCOUNTER 2018-03-14 13:08 | Outpatient (CLI) ==
--- NOTE | 2018-03-14 13:41 | US ---
EXAM: Left lower extremity venous Doppler History: Left lower extremity pain and swelling. Technique: Multiple sonographic images through the left lower extremity were obtained. Color duplex Doppler was used to interrogate vascular flow. Findings: The left common femoral, greater saphenous, profunda, superficial femoral, popliteal, teofilo delmis, posterior tibial and anterior tibial veins demonstrate spontaneous flow with normal compression and normal augmentation. Impression: No sonographic evidence for deep venous thrombosis.
== END 2018-03-14 13:09 | disposition home or self-care (01) ==
LOC: RAD 13:08
PROVIDERS: ATTEND Nurse Practitioner Family
DX: R22.42 Localized swelling, mass and lump, left lower limb (principal); E55.9 Vitamin D deficiency, unspecified; K64.9 Unspecified hemorrhoids; Z86.718 Personal history of other venous thrombosis and embolism; Z00.00 Encounter for general adult medical examination without abnormal findings
CPT/HCPCS: 36415; 80053; 80061; 82306; 84443; 85025

== ENCOUNTER 2018-06-07 09:35 | Outpatient (CLI) ==
--- NOTE | 2018-06-07 10:39 | US ---
EXAM: Transvaginal pelvic ultrasound. History: Irregular menses. Comparison: Pelvic ultrasound 09/23/2016, CT abdomen pelvis 06/30/2015 Technique: Multiple sonographic images through the pelvis were obtained. Color duplex Doppler was u sed to interrogate vascular flow. Findings: The uterus measures 10 cm x 8 5 cm x 6 cm. Multiple cervical Nabothian cysts with the largest measur ing 0.7 cm. Endometrium measures 1.2 cm in thickness. No fluid in the cul-de-sac. Both ovaries are normal in size. Blood flow was documented within each ovary. No suspicious adnexal masses. Impression: 1. No acute sonographic findings. 2. Cervical Nabothian cysts
== END 2018-06-07 09:36 | disposition home or self-care (01) ==
LOC: RAD 09:35
PROVIDERS: ATTEND Physician Assistant
DX: N92.6 Irregular menstruation, unspecified (principal)

== ENCOUNTER 2018-07-10 08:15 | Outpatient (RCR) ==
--- NOTE | 2018-06-26 15:11 | RS.OPPTEV2 ---
Date of Note: 06/26/18 Visit #: 1 Number of visits approved by Insurance: pending approval Date of Evaluation: 06/26/18 Payer Source: Medicaid Surgery Performed?: No Treatment Diagnosis: bursitis of hip History of Condition/Mechanism of Injury:: pt states she has no specific injury but that her pain began a couple of months ago. Prior Level of Function.....Patient was independent with: ADL's, Self Care, Work /Vocation, Caregiving, Ambulation/Mobility, Community Integration/Access Functional Limitations: Sleep, Sitting, Standing, Ambulation, Community Access/ Integration Current Subjective/complaints:: pt states she her pain began a couple of months ago. States pain decreases with amb and increases if sits too long or prolonged standing or lying on side. pt states she was recently diagnosed with fibromyalgia. Treatment Side (optional): Bilateral (R worse than L) *Precautions: n/a Medical History Medical History Comments:: fibromyalgia, anxiety Surgical History: Smoking Status: Former smoker Hx Home Medications: sertraline, buproprion, naproxen Patient's Goals: decrease pain in hips. Pain Assessment - Pain Description Pain Location: B hips R worse than L Pain Description: Burning, Aching Current Pain Intensity: 3 in R, 0 in L Functional Outcome Measure LE Functional Scale: 60 - G Codes & Severity Modifier G Codes & Modifier: n/a Source of G Code score: n/a Observation - Observation Inspection: pt with pronation noted B feet in standing with B knee valgus. Discussion with patient importance of wearing shoes with appropriate support or getting inserts for shoes. Posture: Forward Head, Rounded Shoulders, Increased Thoracic Kyphosis, Decreased Lumbar Lordosis Handedness: Right Gait - Gait Pattern General Gait Pattern Observation: No Deviations/Normal Hip ROM: Right WFL's Hip Muscle Strength: Right WFL's - Left Hip ROM Left Hip ROM Limitations: Tightness on Left, Pain on Left - Right Hip ROM Right Hip ROM Limitations: Tightness on Right, Pain on Right - Left Hip Strength Left Hip Flexion: 4 Good Comments: knee flex/ext 5/5, ankle DF/PF 5/5 - Right Hip Strength Right Hip Flexion: 3+ Fair+ Comments: knee flex/ext 4+/5, ankle Df/PF 5/5 - Special Test MECCA Test: Negative Left, Negative Right (pt with + hip scour test on R, + SLR test on RLE. ) Palpation Palpation Findings: Tenderness Comments:: tenderness to palpation on L greater trochanter. Sensation - Sensation Right Upper Extremity: Intact/Normal Left Upper Extremity: Intact/Normal Right Lower Extremity: Intact/Normal Left Lower Extremity: Intact/Normal Balance - Sitting Balance Static Sitting Balance: Normal Dynamic Sitting Balance: Normal - Standing Balance Static Standing Balance: Normal Dynamic Standing Balance: Normal - Treatment Modality: Electrical Stim Unattended Parameters/Method Applied: IFC x 20 mins at 12ma Treatment Area: R hip Patient Position: Supine - Heat/Cryotherapy Treatment: Cryotherapy Comments:: R hip Interventions - Exercise/Activities/Manual Therapy Exercises/Activities: pt received hamstring stretch, IT band stretch, piriformis stretch Manual Therapy: n/a HOME EXERCISE PROGRAM: pt given written HEP including hamstring stretch, IT band stretch, piriformis stretch - Charges Timed Code Treatment Minutes: 49 Total Treatment Time: 64 Procedures billed for this date of service:: eval low, estim unattended, cold pack EVALUATION COMPLEXITY LEVEL EVALUATION COMPLEXITY LEVEL: HISTORY: Low (fibromyalgia, anxiety), EXAM OF BODY SYSTEMS: Low (pain, muscle tightness, strength), CLINICAL PRESENTATION: Low, CLINICAL DECISION MAKING: Medium Assessment Assessment: pt presents with muscle tightness B hamstrings, piriformis, IT band , as well as decreased strength with pain in R hip. Patient Education: Home Exercise Program, Education of Plan of Care Rehab Potential: Good Short Term Goals Goal #1: pt rate pain < 4/10 with activity Goal to be met by: 07/10/18 Goal #2: Decreased muscle tightness in hamstrings, IT band, piriformis R equal L Goal to be met by: 07/10/18 Goal #3: Improve R hip flex strength 4/5 Goal to be met by: 07/10/18 Goal #4: Independent with HEP Goal to be met by: 07/10/18 Intermediate Goals Goal #1: pt with no reports of pain in L hip and decreased <2/10 R hip Goal to be met by: 07/27/18 Goal #2: Improve BLE hip flex 4+ to 5/5 Goal to be met by: 07/27/18 Goal #3: pt report improved ability to perform standing household duties w less pain Goal to be met by: 07/27/18 Plan - Treatment to be Provided Procedures: Therapeutic Exercises, Therapeutic Activity, Manual Therapy, Massage , Patient Education Modalities: Electrical Stimulation, Ultrasound/Phonophoresis, Cryotherapy, Hot Packs - Treatment Plan Frequency: 2 X week Duration: 4 weeks Dates of Intermediate Goals: 07/27/18 Expiration date of current Insurance Approval:: pending approval - Treatment Code (1) Bursitis of hip Code(s): M70.70 - OTHER BURSITIS OF HIP, UNSPECIFIED HIP Qualifiers: Laterality: bilateral (2) Right hip pain Code(s): M25.551 - PAIN IN RIGHT HIP (3) Muscle tightness Code(s): M62.89 - OTHER SPECIFIED DISORDERS OF MUSCLE (4) Muscle weakness Code(s): M62.81 - MUSCLE WEAKNESS (GENERALIZED)
--- NOTE | 2018-06-29 09:45 | RS.OPPTDN ---
Subjective Date of Note: 06/29/18 Visit #: 2 Number of visits approved by Insurance: 2x4 through 07/27/18 Date of Evaluation: 06/26/18 Payer Source: Medicaid Treatment Diagnosis: bursitis of hip Current Subjective/complaints:: Patient says the stretches she was given and the estim at her eval helped relieve her pain until the next morning. She says she has to work a short shift tonight, but it should not bother her too badly. She says that constant standing is what bothers her the most. Patient says she has to leave early to take her child to the MD. *Precautions: n/a - Heat/Cryotherapy Treatment: Hot Pack (15 mins to the R hip in sidelying ) Interventions - Exercise/Activities/Manual Therapy Exercises/Activities: Patient receives passive stretching bilaterally: HS, piriformis, fig 4, lower trunk rotation, ITband, heel cords x 3. Began pelvic/ hip strengthening: ball squeezes, isometric hip abd and flexion in hooklying x 10. Patient educated on diagnosis, anatomy, explanation of exercises today, proper body mechanics for home/work, and use of heat/ice at home for pain/use prior to therex. Patient encouraged to continue HEP. Manual Therapy: n/a HOME EXERCISE PROGRAM: pt given written HEP including hamstring stretch, IT band stretch, piriformis stretch - Charges Timed Code Treatment Minutes: 22 Total Treatment Time: 37 Procedures billed for this date of service:: hp, ex Assessment: Patient experiencing reduced R hip pain following modality and stretches at eval. She does so also with todays session. She demo good marixa of added exercise today and would benefit from further stretching and pelvic/hip strengthening. Patient Education: Education of diagnosis, Body/Joint mechanics, Home Exercise Program, Education of Plan of Care Patient demonstrates compliance with HEP?: Yes Short Term Goals Goal #1: pt rate pain < 4/10 with activity Goal to be met by: 07/10/18 Goal #2: Decreased muscle tightness in hamstrings, IT band, piriformis R equal L Goal to be met by: 07/10/18 Goal #3: Improve R hip flex strength 4/5 Goal to be met by: 07/10/18 Goal #4: Independent with HEP Goal to be met by: 07/10/18 [facility] Goals Goal #1: pt with no reports of pain in L hip and decreased <2/10 R hip Goal to be met by: 07/27/18 Goal #2: Improve BLE hip flex 4+ to 5/5 Goal to be met by: 07/27/18 Goal #3: pt report improved ability to perform standing household duties w less pain Goal to be met by: 07/27/18 Plan Dates of Parks And Recreation Worker Goals: 07/27/18 Expiration date of current Insurance Approval:: 07/27/18, 8 total visits PLAN: Continue for modalities and therex
--- NOTE | 2018-07-03 09:57 | RS.OPPTDN ---
Subjective Date of Note: 07/03/18 Visit #: 3 Number of visits approved by Insurance: Pending approval. Alva 6-8 total Date of Evaluation: 06/26/18 Payer Source: Medicaid Treatment Diagnosis: bursitis of hip Current Subjective/complaints:: Patient says that her R hip seems to be feeling better. She says she is not having to take as much Naproxen as she had been. She states her job shift was not affecting her as badly either. She says the stretches have been effective for reducing her pain. *Precautions: n/a Pain Assessment - Pain Description Pain Location: R sided low back and into the R hip and lateral upper thigh - Treatment Modality: Electrical Stim Unattended Parameters/Method Applied: hivolt 4 large pads to the R lumbar paraspinals and R lateral upper thigh/SI joint @ 115 pk volts x 20 mins Patient Position: Left Sidelying - Heat/Cryotherapy Treatment: Hot Pack Interventions - Exercise/Activities/Manual Therapy Exercises/Activities: Patient receives passive stretching bilaterally: HS, piriformis, fig 4, lower trunk rotation, ITband, heel cords x 3. Continued with pelvic/hip strengthening: ball squeezes, isometric hip abd and flexion in hooklying x 10. R QS x 10. Gave ball squeezes for home. Total minutes of Exercise: 19 Manual Therapy: n/a HOME EXERCISE PROGRAM: pt given written HEP including hamstring stretch, IT band stretch, piriformis stretch - Charges Timed Code Treatment Minutes: 19 Total Treatment Time: 39 Procedures billed for this date of service:: hp, estim (un), ex Assessment: Patient experiencing reduced pain level over the weekend as she is managing pain with stretches and better body mechanics at work. She is using OTC less frequent as a result and marixa all added therex well today. Patient Education: Body/Joint mechanics, Home Exercise Program Patient demonstrates compliance with HEP?: Yes Short Term Goals Goal #1: pt rate pain < 4/10 with activity Goal to be met by: 07/10/18 Progress towards Goal:: Progressing Goal #2: Decreased muscle tightness in hamstrings, IT band, piriformis R equal L Goal to be met by: 07/10/18 Progress towards Goal:: Progressing Goal #3: Improve R hip flex strength 4/5 Goal to be met by: 07/10/18 Goal #4: Independent with HEP Goal to be met by: 07/10/18 Retirement Goals Goal #1: pt with no reports of pain in L hip and decreased <2/10 R hip Goal to be met by: 07/27/18 Goal #2: Improve BLE hip flex 4+ to 5/5 Goal to be met by: 07/27/18 Goal #3: pt report improved ability to perform standing household duties w less pain Goal to be met by: 07/27/18 Plan Dates of Saturation Equipment Operator Goals: 07/27/18 Expiration date of current Insurance Approval:: 07/27/18 PLAN: Patient to continue 2-3 more visits according to order and being cautious as we do not have approval yet beyond that from her insurance.
--- NOTE | 2018-07-06 11:11 | RS.OPPTDN ---
Subjective Date of Note: 07/06/18 Visit #: 4 Number of visits approved by Insurance: Alva no approval currently. Stop ~ 6th visit Date of Evaluation: 06/26/18 Payer Source: Medicaid Treatment Diagnosis: bursitis of hip Current Subjective/complaints:: Patient c/o elevated pain making her take a Naproxen after sitting in a restauarant chair for prolonged period. She says it was difficult for her to get up out of it and had pain and stiffness to the R hip. She used heat compress that evening with Naproxen and still hurt into the next morning. Since then, her pain has diminished and is milder now. *Precautions: n/a Pain Assessment - Pain Description Pain Location: R hip (greater trochanter) - Treatment Modality: Electrical Stim Unattended Parameters/Method Applied: hivolt 4 large pads @ 95-100 pk volts to the R greater trochanter region x 20 mins Patient Position: Left Sidelying - Heat/Cryotherapy Treatment: Hot Pack Interventions - Exercise/Activities/Manual Therapy Exercises/Activities: Patient receives passive stretching bilaterally: HS, piriformis, fig 4, lower trunk rotation, ITband, heel cords x 3. Continued with pelvic/hip strengthening: ball squeezes, hooklying hip abd with red tband and isometric flexion in hooklying x 10. R QS x 10. SLR 2x5. Total minutes of Exercise: 22 Manual Therapy: n/a HOME EXERCISE PROGRAM: pt given written HEP including hamstring stretch, IT band stretch, piriformis stretch - Charges Timed Code Treatment Minutes: 22 Total Treatment Time: 42 Procedures billed for this date of service:: hp, estim (un), ex Assessment: Roxanne recently had elevated pain to the R hip making her resume taking Naproxen and did not improve until the next morning. Symptoms increased after sitting for prolonged period while out to eat. 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 She has much reduced pain now and able to marixa progressive stretching. Weakness seen with SLR and required some support from PHP MAGENTO DEVELOPER, but all other therex seems to be performed easier. Patient Education: Body/Joint mechanics, Home Exercise Program Patient demonstrates compliance with HEP?: Yes Short Term Goals Goal #1: pt rate pain < 4/10 with activity Goal to be met by: 07/10/18 Progress towards Goal:: Progressing Goal #2: Decreased muscle tightness in hamstrings, IT band, piriformis R equal L Goal to be met by: 07/10/18 Progress towards Goal:: Progressing Goal #3: Improve R hip flex strength 4/5 Goal to be met by: 07/10/18 Progress towards Goal:: Progressing Goal #4: Independent with HEP Goal to be met by: 07/10/18 Central Office Inspector Goals Goal #1: pt with no reports of pain in L hip and decreased <2/10 R hip Goal to be met by: 07/27/18 Goal #2: Improve BLE hip flex 4+ to 5/5 Goal to be met by: 07/27/18 Goal #3: pt report improved ability to perform standing household duties w less pain Goal to be met by: 07/27/18 Plan Dates of Mcc Goals: 07/27/18 Expiration date of current Insurance Approval:: 07/27/18 PLAN: Patient to continue BIW for progressive hip strengthening.
--- NOTE | 2018-07-10 10:08 | RS.OPPTDN ---
Subjective Date of Note: 07/10/18 Visit #: 5 Number of visits approved by Insurance: [place]. Reassess and possibly stop at 8th visit due to no approval yet. Date of Evaluation: 06/26/18 Payer Source: Medicaid Treatment Diagnosis: bursitis of hip Current Subjective/complaints:: Patient says pain is still at the R hip, but now moving down her upper thigh. She says most difficult task at home is standing for prolonged period to wash dishes. *Precautions: n/a Pain Assessment - Pain Description Pain Location: R greater trochanter - Treatment Modality: Ultrasound Parameters/Method Applied: continuous @ 1.6 w/cm2 x 12 mins to the R greater trochanter and just distally. Patient Position: Left Sidelying - Heat/Cryotherapy Treatment: Hot Pack (over the R low back and hip in sidelying x 15 mins) Interventions - Exercise/Activities/Manual Therapy Exercises/Activities: Patient receives passive stretching bilaterally: HS, piriformis, fig 4, lower trunk rotation, ITband, heel cords x 2. Continued with pelvic/hip strengthening: ball squeezes, hooklying hip abd with green tband and isometric flexion in hooklying x 10. R QS x 10. Bridging x 10. Gave green tband for home hooklying hip abd. Total minutes of Exercise: 16 Manual Therapy: n/a HOME EXERCISE PROGRAM: pt given written HEP including hamstring stretch, IT band stretch, piriformis stretch - Charges Timed Code Treatment Minutes: 28 Total Treatment Time: 43 Procedures billed for this date of service:: hp, u/s, ex Assessment: Modified treatment to u/s today to verify any change in pain level/ functional tolerance to prolonged standing. She marixa u/s treatment well and is eager to see any improvement that may come from this change. She demo improved hamstring flexibility as well as ITB and piriformis now comparable to L. She demo good resistance without pain or discomfort during isometrics. Patient Education: Education of diagnosis, Body/Joint mechanics, Home Exercise Program Patient demonstrates compliance with HEP?: Yes Short Term Goals Goal #1: pt rate pain < 4/10 with activity Goal to be met by: 07/10/18 Progress towards Goal:: Progressing Goal #2: Decreased muscle tightness in hamstrings, IT band, piriformis R equal L Goal to be met by: 07/10/18 Progress towards Goal:: Met Comments:: Verified today. Now comparable to L. Goal #3: Improve R hip flex strength 4/5 Goal to be met by: 07/10/18 Progress towards Goal:: Met Comments:: Verified today. Gross R hip strength 4/5 Goal #4: Independent with HEP Goal to be met by: 07/10/18 Progress towards Goal:: Progressing Flight Line Mechanic Goals Goal #1: pt with no reports of pain in L hip and decreased <2/10 R hip Goal to be met by: 07/27/18 Goal #2: Improve BLE hip flex 4+ to 5/5 Goal to be met by: 07/27/18 Goal #3: pt report improved ability to perform standing household duties w less pain Goal to be met by: 07/27/18 Plan Dates of Flight Line Mechanic Goals: 07/27/18 Expiration date of current Insurance Approval:: 07/27/18 PLAN: Continue 3 more sessions per order.
--- NOTE | 2018-07-12 09:29 | RS.CXNS ---
Date of scheduled appointment: 07/12/18 Type: No Show
== END 2018-07-12 23:59 ==
PROVIDERS: ATTEND Physician Assistant
DX: M70.72 Other bursitis of hip, left hip (principal); M70.71 Other bursitis of hip, right hip; M25.551 Pain in right hip; M62.89 Other specified disorders of muscle; M62.81 Muscle weakness (generalized)

== ENCOUNTER 2018-07-19 16:05 | Emergency (ER) ==
[2018-07-19 16:12] VITALS: BP 143/82; TEMP 99.3; BMI 47.8
--- NOTE | 2018-07-19 18:13 | ED.PDOC ---
General ED Provider: Dr. JOVITA AMADOR Chief Complaint: Abdominal Pain Stated Complaint: LMP April; home test is positive; has abdominal pain and cramping. Time Seen by Physician: 16:00 Mode of Arrival: Walk-In Information Source: Patient Exam Limitations: No limitations Primary Care Provider: THERESA CAMEJO Nursing and Triage Documentation Reviewed and Agree: Yes Does patient meet sepsis criteria?: No System Inflammatory Response Syndrome: Not Applicable Sepsis Protocol: For patient's 13 years and over: Temp is 96.8 and below OR 101 and greater Pulse >90 BPM Resp >20/minute Acutely Altered Mental Status Are patient's symptoms suggestive of a new infection, such as: -Pneumonia -Skin, Soft Tissue -Endocarditis -UTI -Bone, Joint Infection -Implantable Device -Acute Abdominal Infection -Wound Infection -Meningitis -Blood Stream Catheter Infection -Unknown Review of Systems - Review Of Systems Constitutional: Reports: No symptoms Respiratory: Reports: No symptoms GI: Reports: Abdominal pain (cramping; loose stool) All Other Systems: Reviewed and Negative Past Medical History - Past Medical History Previously Healthy: Yes Endocrine: Reports: None Cardiovascular: Reports: None Respiratory: Reports: None, Other (P.E.) Hematological: Reports: None Gastrointestinal: Reports: None Genitourinary: Reports: None Neuro/Psych: Reports: None Musculoskeletal: Reports: None Cancer: Reports: None Last Menstrual Period: jun 08 - Surgical History General Surgical History: Reports: Unknown - Family History Family History: Reports: Unknown - Social History Smoking Status: Former smoker Hx Substance Use: No Alcohol Screening: None Physical Exam - Physical Exam Appearance: Well-appearing Eyes: TERESA, EOMI ENT: Ears normal, Nose normal Neck: Supple Respiratory: Airway patent, Breath sounds clear, Breath sounds equal, Respirations nonlabored Cardiovascular: RRR, Pulses normal GI/: Soft, Nontender, Bowel sounds normal Musculoskeletal: Normal strength, ROM intact Skin: Warm, Dry Neurological: Sensation intact, Motor intact, Alert, Oriented Psychiatric: Affect appropriate, Mood appropriate Critical Care Note - Critical Care Note Total Time (mins): 15 Course - Course Orders, Labs, Meds: Orders Category Date Time Status ULTRASOUND OB/TV [U/S OB/TV] Stat RADS 07/19/18 16:19 Completed Vital Signs: Temp Pulse Resp BP Pulse Ox 07/19/18 16:05 99.3 F 79 20 143/82 H 98 Departure - Departure Time of Disposition: 18:51 Disposition: HOME SELF-CARE Discharge Problem: Abdominal pain Qualifiers: Abdominal location: generalized Qualified Code(s): R10.84 - Generalized abdominal pain Qualifiers: Weeks of gestation: less than 8 weeks Qualified Code(s): Z3A.01 - Less than 8 weeks gestation of Instructions: Enteritis (ED) Condition: Good Pt referred to PMD for follow-up: Yes (Follow up with primary care and OB) IPMP verified?: No (NA) Additional Instructions: Call and make appointment with OB for care; folllow up with primary care as needed for other need. Allergies/Adverse Reactions: Allergies bitbirth control pills Allergy (Severe, Uncoded 07/19/18 16:14) blood clots Home Medications: Ambulatory Orders 1 [No Reported Medications] 07/19/18 Disposition Discussed With: Patient (Educated re early gestation; US unable to determine specifics other than no evidence of tubal )
--- NOTE | 2018-07-19 18:49 | US ---
Exam: Ultrasound OB transvaginal History: Abdominal pain FINDINGS: The uterus measures 10.7 x 5.0 cm. There is a 0.76 cm intrauterine collection with questi onable peripheral hyperechoic reaction. No yolk sac or pole is seen. The right and left ovarie s are identified and appear normal. No adnexal mass or free pelvic fluid. Impression: 1. Tiny intrauterine collection with features of a questionable gestational sac which is too small t o date. Intrauterine is not confirmed. Correlate with serial Beta HCG values.
== END 2018-07-19 19:00 | disposition home or self-care (01) ==
LOC: ED 16:05
DX: R10.84 Generalized abdominal pain (principal); Z3A.01 Less than 8 weeks gestation of pregnancy
CPT/HCPCS: 99282

== ENCOUNTER 2019-05-17 11:58 | Outpatient (CLI) | END 2019-05-17 11:59 | disposition home or self-care (01) | LOC: RHC-LAB 11:58 | PROVIDERS: ATTEND Nurse Practitioner Family | DX: E66.9 Obesity, unspecified (principal); F41.9 Anxiety disorder, unspecified | CPT/HCPCS: 36415; 80053; 80061; 84443; 85025 ==